=== PATIENT | female | born 1955 | race Caucasian/White ===

== ENCOUNTER 2018-07-15 12:50 | Outpatient (CLI) | payer MEDICARE ==
[2018-07-15 13:58] LABS: Estimated GFR-MDRD - POC Greater than 90
--- NOTE | 2018-07-15 14:14 | CT ---
CT LUMBAR SPINE WITHOUT CONTRAST: HISTORY: Previous fracture to the lumbar spine. Pain radiating down the left leg. Left leg weakness. COMPARISON: None. FINDINGS: There is leftward curvature of the lumbar spine. Unilateral left-sided transpedicular screw at L5 an d S1. No perihardware lucency. There is bone graft material in the posterior elements at L4, L5, an d S1. Laminectomy defect at L5 and to a lesser extent at L4. No retroperitoneal mass, lymphadenopathy, or hematoma. The visualized solid organs and alimentary ca nal are unremarkable. No prevertebral soft tissue swelling. Limited evaluation of the contents of the central spinal canal and neural foramen due to technique. T12-L1: No significant central canal stenosis or significant foraminal narrowing. L1-L2: Severe loss of disk space height. Nevertheless, no high-grade central canal stenosis. Mild bilateral foraminal narrowing. L2-L3: Severe loss of disk space height. No high-grade central canal stenosis. Moderate right and m ild to moderate left foraminal narrowing. L3-L4: Severe loss of disk space height. Generalized disk bulge, ligamentum flavum thickening, and facet hypertrophy result in mild to moderate central canal stenosis. Right neural foramen is moderat kat narrowed. The left foramen is patent. L4-L5: Laminectomy defect. Generalized disk bulge, posterior element hypertrophy result in at least mild central canal stenosis. Mild bilateral neural foraminal narrowing. L5-S1: Laminectomy defect. Limited evaluation of the central spinal canal. No evidence of high-gra de central canal stenosis. Mild right and mild to moderate left foraminal narrowing. The left neura l foramen is slightly narrowed due to osteophyte formation along the inferior end plate of L5. IMPRESSION: 1. Degenerative change of the lumbar spine as described above. 2. Fusion change of the lumbar spine as described above. 3. No evidence of high-grade central spinal canal. Varying degrees of foraminal narrowing as detail ed above. POS: [facility]
--- NOTE | 2018-07-15 15:27 | MRI ---
[facility] brain with and without contrast: 07/15/2018 HISTORY: 63-year-old female with R 41.89 cognitive change. FINDINGS: There is no restricted diffusion. Ventricles are normal in size and configuration. No abnormal intra- axial enhancement, intra-axial mass, mass effect, midline shift, or extra-axial fluid collection. The re are several small patchy focal T2 hyperintense lesions ranging from a few millimeters to slightly greater than 1 cm in size in the bilateral stewart radiata and centrum semiovale. These are nonspecifi c, but are statistically most likely represent chronic ischemic white matter changes due to microvasc ular atherosclerosis. Mild such changes are present in the sanjiv. No evidence of recent or remote intr a-axial hemorrhage. IMPRESSION: 1. Mild chronic ischemic white matter changes. 2. Otherwise negative.
--- NOTE | 2018-07-15 15:49 | MRI ---
[facility] CERVICAL SPINE WITH AND WITHOUT CONTRAST: HISTORY: Cervical myelopathy. The patient has had a previous history of multiple myeloma. TECHNIQUE: Multiplanar, multisequence pre and post contrast enhanced MR images cervical spine obtained. C1-C2: Unremarkable. C2-C3: There is a mild broad-based disc bulge. No significant degree of central or neural foraminal n arrowing seen. C3-C4: There is broad-based disc osteophyte complex centrally, compressing the thecal sac. This resul ts in moderate to severe central and mild cord compression. There is moderate to severe bilateral C3- 4 neural foraminal narrowing due to uncovertebral osteophyte hypertrophy. C4-C5: There is a minimal broad-based central disc bulge. The neural foramen are patent. The C5 vertebral body is atrophied, significantly smaller than adjacent signals. It also has increas ed signal in T1 and T2 weighted sequences, most compatible with extensive fatty changes. C5-C6: Significant disc space height loss is seen. The central canal and neural foramen are patent. C6-C7: There is a broad-based disc osteophyte complex centrally, compressing the thecal sac, resultin g in moderate to severe thecal sac compression. Cord compression is seen. The right neural foramen is patent. Moderate to severe left C6-7 neural foraminal narrowing is seen, due to uncovertebral osteop hyte hypertrophy. C7-T1: Unremarkable. IMPRESSION: 1. C3-C4 and C6-C7 central spinal stenosis. 2. There is some atrophy of the C5 vertebral body, with partial fusion with the upper C6 level. Transcribed Date/Time: 07/15/2018 3:49 PM
== END 2018-07-15 12:51 | disposition home or self-care (01) ==
LOC: BICMRI 12:50
PROVIDERS: ATTEND Neurological Surgery
DX: M47.26 Other spondylosis with radiculopathy, lumbar region (principal); M47.16 Other spondylosis with myelopathy, lumbar region; G95.9 Disease of spinal cord, unspecified; R41.89 Other symptoms and signs involving cognitive functions and awareness; C90.00 Multiple myeloma not having achieved remission; M48.02 Spinal stenosis, cervical region; Z98.890 Other specified postprocedural states
CPT/HCPCS: 70553; 72131; 72156; 82565

== ENCOUNTER 2018-11-14 12:30 | Observation (INO) | payer MEDICARE ==
--- NOTE | 2018-11-14 13:25 | CT ---
CT Brain WO Con: 11/14/2018 1:00 PM CLINICAL HISTORY: Syncopal episode and fall. IMAGING TECHNIQUE: Multiple CT images were obtained of the brain without IV contrast. COMPARISON: MR the brain dated July 15, 2018 FINDINGS: Infarct: No acute infarct is evident. There is stable mild chronic small vessel white matter ischemi c change. Hemorrhage: None.. Hydrocephalus: None.. Basal cisterns: Normal.. Cerebral parenchyma: Normal.. Midline shift: None.. Cerebellum: Normal. Brainstem: Normal. OTHER: Calvarium: Intact.. Visualized Paranasal sinuses: Clear.. Extracranial soft tissues:Normal. IMPRESSION: No acute intracranial abnormality.
--- NOTE | 2018-11-14 13:29 | CT ---
CT Cervical Spine WO Con Indication: Syncopal episode with fall and neck pain COMPARISON: MR the cervical spine dated July 15, 2018 FINDINGS: Acute fracture/subluxation: None. Spinal alignment: There is slight anterior translation of C3 on C4 which is degenerative. Craniocervical junction: Within normal limits. Vertebral body heights: There is ankylosis of C4-C6 including both the intervertebral bodies as well as the facet complexes. There is degenerative subchondral cystlike abnormality is seen within C5, C4 and C6. Cervical spine degenerative change: There is moderate to severe multilevel spondylosis of the cervica l spine. There is prominent disc osteophyte complex at C6-C7 causing some mild osseous central canal narrowing Lung apices: Clear. IMPRESSION: 1. No acute fracture or subluxation demonstrated. 2. Moderate to severe spondylosis of the cervical spine
--- NOTE | 2018-11-14 14:18 | RAD ---
XR Foot Rt 3 View STANDARD INDICATION: Syncopal episode with foot injury COMPARISON: None. FINDINGS: Bones: There is healed fracture deformity of the fifth digit metatarsal. There is a spiral fracture o f the lateral malleolus. Joints: There is moderate metatarsus primus varus and hallux valgus deformity. There is a moderate-si zed bunion overlying the great toe metatarsal head. Small calcification is seen lateral to the great toe proximal phalangeal base. Lisfranc alignment: Lisfranc alignment appears within normal limits. Soft tissues: There is a moderate-sized bunion overlying the great toe metatarsal head. IMPRESSION: No acute fracture or subluxation demonstrated of the right foot. Spiral fracture of the l ateral malleolus.
--- NOTE | 2018-11-14 14:26 | RAD ---
RIGHT ANKLE 3 VIEWS: Date: 11/14/18 HISTORY: Fall, right ankle pain. FINDINGS/IMPRESSION: There is an oblique, minimally displaced fracture involving the distal fibula. Soft tissue swelling i s present. The ankle mortise is maintained. POS: [facility]
--- NOTE | 2018-11-14 14:27 | RAD ---
LEFT ANKLE 3 VIEWS: Date: 11/14/18 HISTORY: Fall. Left ankle pain. FINDINGS/IMPRESSION: The ankle mortise is maintained. No fracture or dislocation is seen. Posterior and plantar calcaneal spurs are present. Soft tissue swelling is present. POS: [facility]
[2018-11-14] MEDS ORDERED: Aspirin 325 MG TAB ONE (14:47)
[2018-11-14] MEDS ORDERED: Nitroglycerin 2% Ointment 1 INCH/1 GM Packet ONE ×2 (14:48→17:38)
[2018-11-14 15:16] LABS: #Basophils 0.1 thou/uL (0.0-0.2); #Eosinphils 0.2 thou/uL (0.0-0.7); #Lymphocytes 1.9 thou/uL (1.20-3.40); #Monocytes 0.5 thou/uL (0.11-0.59); #Neutrophils 3.2 thou/uL (1.40-6.50); %Basophils 1.4 % (0.0-1.0); %Eosinophils 2.9 % (0.0-10.0); %Lymphocytes 32.1 % (21.0-51.0); %Neutrophils 55.5 % (42.0-75.0); Hemoglobin 14.4 g/dL (12.0-16.0); Mean Corpuscular HGB CONC 33.5 g/dL (32.0-36.0); Mean Corpuscular Hemoglobin 30.9 pg (27.0-31.0); Mean Corpuscular Volume 92.4 fL (78.0-98.0); Mean Platelet Volume 7.3 fL (7.4-10.4); Platelet Count 197 thou/uL (130-400); RBC Distribution Width 14.3 % (11.5-14.5); Red Blood Cell (RBC) Count 4.65 mill/uL (4.20-5.40); White Blood Cell (WBC) Count 5.8 thou/uL (4.8-10.8)
--- NOTE | 2018-11-14 15:37 | RAD ---
Chest one view HISTORY: Syncope. Chest pain. COMPARISON: 05/24/2016. FINDINGS: Cardiac silhouette is magnified by projection. Pulmonary vasculature is unremarkable. Media stinum is midline. No lobar consolidation or evidence of pneumothorax. IMPRESSION: No active cardiopulmonary abnormalities are demonstrated.
[2018-11-14 15:38] LABS: ALT (SGPT) 20 U/L (8-55); AST (SGOT) 24 U/L (5-34); Albumin 4.4 g/dL (3.4-4.8); Alkaline Phosphatase 94 U/L (40-150); Anion Gap 14 mmol/L (10-20); BUN (Urea Nitrogen) 17 mg/dL (9.8-20.1); Bilirubin, Total 0.6 mg/dL (0.2-1.2); CK (CPK) 169 U/L (29-168); Calc. Creatinine Clearance 0 mL/min (70-130); Calcium 9.9 mg/dL (7.8-10.44); Carbon Dioxide 28 mmol/L (23-31); Chloride 99 mmol/L (98-107); Estimated GFR-MDRD Greater than 90; Glucose 90 mg/dL (80-115); Lipase 7 U/L (8-78); Protein, Total 7.4 g/dL (6.0-8.3); Sodium 137 mmol/L (136-145)
--- NOTE | 2018-11-14 16:23 | PDOC.FPRHP ---
- History of Present Illness Chief Complaint: Fracture, syncope History of Present Illness: This 63-year-old female w/ significant PMHx including multiple myeloma, gastric bypass, SVT, HLD, and hypothyroidism presented to the ER today after having a fall yesterday. The fall occurred when she fainted near the stairs and sustained a R distal fibula fracture and L ankle sprain. She reports her daughter, who is intellectually disabled, could not wake her up for a couple of minutes. Before the fall, the patient became weak and tried to brace herself. Patient reports she has fallen about twice a month for the past several months and attributes this to dehydration as well as low blood pressure, which is why she stopped taking her bisoprolol for her SVT. She denies any other symptoms associated with her syncopal episodes. When patient arrived to the ED, she began experiencing chest pain she describes as pressure which radiates to her right ribs and upwards to her neck some. She denies nausea, vomiting, or diaphoresis with these episodes. She has had this chest pain previously and notes the onset of chest pain a few months ago. She likes to garden and the pain worsens with exertion. It improves after she takes an aspirin and lays down ~30 min. The chest pain is associated w/ SOB. ED Course: Patient arrived to ED where her R distal fibula fracture was splinted. After onset of chest pain, nitro paste placed on chest. Pain was better. - Allergies/Adverse Reactions Allergies Allergy/AdvReac Type Severity Reaction Status Date / Time tetracycline Allergy Verified 11/15/18 05:54 - Home Medications Medication Instructions Recorded Confirmed Type Albuterol Sulfate [Proair HFA] 8.5 g INH Q6H PRN 05/25/16 11/14/18 History Ipratropium/Albuterol Sulfate 3 ml NEB QID PRN 05/25/16 11/14/18 History [DuoNeb] Levothyroxine Sodium 50 mcg PO DAILY 05/25/16 11/14/18 History fentaNYL 25 mcg TOP Q3DAYS 05/25/16 11/14/18 History valACYclovir HCl [valACYclovir] 500 mg PO DAILY 05/25/16 11/14/18 History Dicyclomine [Bentyl] 20 mg PO QID #120 tab 06/03/16 11/14/18 Rx Ondansetron [Zofran ODT] 4 mg PO Q6H PRN #20 tab 06/03/16 11/14/18 Rx Saccharomyces boulardii [Florastor] 250 mg PO DAILY #30 cap 06/03/16 11/14/18 Rx Thalidomide [Thalomid] 50 mg PO DAILY 11/14/18 11/14/18 History traZODone HCl [Trazodone HCl] 100 mg PO PRN PRN 11/14/18 11/14/18 History - History PMHx: - Multiple myeloma diagnosed in 2010, on maintenance chemo - Stem cell transplant 2013 - Multilevel back fx - Scoliosis - Degenerative disk disease of spine, - 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 - Review of Systems General: denies: fever/chills, weight/appetite/sleep changes Eyes: denies: eye pain, vision changes ENT: denies: nasal congestion, rhinorrhea Respiratory: reports: shortness of breath, exercise intolerance. denies: cough , congestion Cardiovascular: reports: chest pain, edema Gastrointestinal: denies: nausea, diarrhea, constipation Genitourinary: denies: dysuria Skin: reports: rashes. denies: jaundice Musculoskeletal: denies: pain, stiffness Neurological: reports: syncope. denies: numbness, seizure Psychological: reports: anxiety, depression - Vital signs BP: 124/75 HR: 56 RR: 16 98% on RA Wt: 68 kg - Physical Exam Constitutional: NAD, awake, alert and oriented HEENT: PERRLA, EOMI, MMM Neck: supple, no LAD, no JVD, no thyromegaly Chest: no-tender to palpation Heart: RRR (slightly bradycardic), normal S1/S2, no murmurs/rubs/gallops, pulses present Lungs: CTAB, no respiratory distress, good air movement Abdomen: soft, non-tender, bowel sounds present Musculoskeletal: normal structure, normal tone -Musculoskeletal: Patient had right leg splinted. Neurological: no focal deficit, CN II-XII intact Skin: no rash/lesions, good turgor Heme/Lymphatic: no unusual bruising or bleeding, no LAD Psychiatric: normal mood and affect, good judgment and insight FMR H&P: Results - Labs Result Diagrams: 11/15/18 05:52 11/15/18 05:52 Lab results: WBC 5.8 thou/uL (4.8-10.8) 11/14/18 14:53 Hgb 14.4 g/dL (12.0-16.0) 11/14/18 14:53 Hct 43.0 % (36.0-47.0) 11/14/18 14:53 MCV 92.4 fL (78.0-98.0) 11/14/18 14:53 Plt Count 197 thou/uL (130-400) 11/14/18 14:53 Neutrophils % 55.5 % (42.0-75.0) 11/14/18 14:53 Sodium 137 mmol/L (136-145) 11/14/18 14:53 Potassium 4.0 mmol/L (3.5-5.1) 11/14/18 14:53 Chloride 99 mmol/L (98-107) 11/14/18 14:53 Carbon Dioxide 28 mmol/L (23-31) 11/14/18 14:53 BUN 17 mg/dL (9.8-20.1) 11/14/18 14:53 Creatinine 0.65 mg/dL (0.6-1.1) 11/14/18 14:53 Glucose 90 mg/dL (80-115) 11/14/18 14:53 Calcium 9.9 mg/dL (7.8-10.44) 11/14/18 14:53 Total Bilirubin 0.6 mg/dL (0.2-1.2) 11/14/18 14:53 AST 24 U/L (5-34) 11/14/18 14:53 ALT 20 U/L (8-55) 11/14/18 14:53 Alkaline Phosphatase 94 U/L (40-150) 11/14/18 14:53 Creatine Kinase 169 U/L (29-168) H 11/14/18 14:53 Serum Total Protein 7.4 g/dL (6.0-8.3) 11/14/18 14:53 Albumin 4.4 g/dL (3.4-4.8) 11/14/18 14:53 Lipase 7 U/L (8-78) L 11/14/18 14:53 - EKG Interpretation EKG: Sinus bradycardia w/ 1st degree heart block. Possible RBBB. No evidence of ST changes. - Radiology Interpretation Chest x-ray Status: image reviewed by me, report reviewed by me Additional comment: No acute process CT scan - head Status: report reviewed by me Additional comment: No acute process Other Status: report reviewed by me Additional comment: X-ray of R foot: spiral fracture of lateral malleolus, distal oblique, minimally displaced fibular fracture X-ray L: no fracture. FMR H&P: A/P - Problem List (1) Right fibular fracture Current Visit: Yes Status: Acute Code(s): S82.401A - UNSP FRACTURE OF SHAFT OF RIGHT FIBULA, INIT FOR CLOS FX (2) Chest pain Current Visit: Yes Status: Acute Code(s): R07.9 - CHEST PAIN, UNSPECIFIED (3) Left ankle sprain Current Visit: Yes Status: Acute Code(s): S93.402A - SPRAIN OF UNSPECIFIED LIGAMENT OF LEFT ANKLE, INIT ENCNTR (4) Syncope and collapse Current Visit: Yes Status: Acute Code(s): R55 - SYNCOPE AND COLLAPSE (5) Anxiety Current Visit: No Status: Chronic Code(s): F41.9 - ANXIETY DISORDER, UNSPECIFIED (6) Chronic pain Current Visit: No Status: Chronic Code(s): G89.29 - OTHER CHRONIC PAIN (7) Depression Current Visit: No Status: Chronic Code(s): F32.9 - MAJOR DEPRESSIVE DISORDER , SINGLE EPISODE, UNSPECIFIED (8) Hyperlipidemia Current Visit: No Status: Chronic Code(s): E78.5 - HYPERLIPIDEMIA, UNSPECIFIED (9) Hypothyroidism Current Visit: No Status: Chronic Code(s): E03.9 - HYPOTHYROIDISM, UNSPECIFIED Qualifiers: (10) Multiple myeloma Current Visit: No Status: Chronic Code(s): C90.00 - MULTIPLE MYELOMA NOT HAVING ACHIEVED REMISSION Qualifiers: (11) History of supraventricular tachycardia Current Visit: Yes Status: Chronic Code(s): Z86.79 - PERSONAL HISTORY OF OTHER DISEASES OF THE CIRCULATORY SYSTEM - Plan 63-yo female w/ multiple complex medical issues presenting for: 1. Syncope & collapse - Will pursue syncope workup: - Bilateral Carotid U/S pending - ECHO pending - Orthostatic vital signs pending - IV Fluids LR 2. R Fibular fracture - No ambulation - Ortho consult in AM 3. L ankle sprain - Pain management - Continue patient's fentanyl patch 4. Chest pain, r/o ACS - In conjunction w/ syncope workup, we will rule out ACS: - Nuclear stress test in AM, NPO at midnight - Repeat EKG as needed - ECHO as above - Nitro prn - Trend troponins - TSH, Hgb A1C, Magnesium, Phosphorus pending - PPx: LVX. - Telemetry observation - Patient's multiple myeloma not only places her at risk for clotting, but also at risk for cardiomyopathy. Chronic problems: Multiple myeloma: continue thalomid HTN: monitor vitals. Patient seems to run on the more hypotensive side. Hypothyroidism: continue synthroid Anxiety/Depression: continue meds Code status: FULL PPx: LVX Annabelle Salazar MD PGY-1 FMR H&P: Upper Level - Plan Date/Time: 11/14/18 1621 63 yo f presents with syncope and chest pain. She fell upon fainting and hurt her right ankle/leg. Chest pain described as left sided that raps around to her back, pressure-like, no n/v/d, but does endorse shortness of breath, denies diaphoresis, does not radiate, worse with exertion, relieved by rest. Vitals: sinus bradycarida 50-60s, otherwise wnl PE: NAD Sinus bradycardia, possible 1/6 systolic murmur CTAB ankles wrapped b/l, right ankle/robins splinted a&Ox3 Labs: trop <.o1 Sinus bradycardia w/ 1st degree heart block. Possible RBBB. No evidence of ST changes. X-ray of R foot: spiral fracture of lateral malleolus, distal oblique, minimally displaced fibular fracture A/P: Atypical chest pain-troponins negative, no ST changes, although unsureif the 1 degree block and possible RBBB are new. Will trend troponins, and check serial EKG's if chest pain persists. Currently pain resolved in the room. No prior hx of ME. Will admit overnight and get a stress in the am. Pt received 324mg aspirin in the ER and 81mg daily started. Will check mg, phosph, tsh, hba1c as well. Will get an echo for possible murmur. Syncope -cardiogenic vs dehydration; will get orthostatics, echo, serial EKGs, and carotid doppler US b/l to further assess. Pt asymptomatic in the room currently and bp's wnl. Fibular fracture-pt currently splinted; will consult ortho in am. Jesus Burger MD, PGy-3 have evaluated this patient and agree with findings/ plan as outlined by design engineering intern resident. Pertinent changes/additions are listed here. Addendum - Attending - Attending Attestation Date/Time: 11/14/18 [id number] I personally evaluated the patient and discussed the management with Dr. Tran. I agree with the History, Examination, Assessment and Plan documented above with any addition or exceptions noted below. The patient presented following a fall/syncopal spell where she fractured her right fibula. The patient then developed a squeezing chest pain radiating to the left ribs while in the ER. She will get a carotid doppler and echo. The patient will also have enzymes trended, will get chemical stress test tomorrow. Nitro for pain. Pt's leg has been splinted.
[2018-11-14] MEDS ORDERED: Morphine 4 MG/ML VIAL ONE (17:38)
[2018-11-14] MEDS ORDERED: Ondansetron PF 4 MG/2 ML Vial IVP PRN ×2 (18:47→20:11)
[2018-11-14] MEDS ORDERED: Ondansetron ODT 4 MG TAB SL PRN (18:47)
[2018-11-14 19:11] VITALS: BMI 29.4
[2018-11-14 19:12] LABS: Troponin I Less than 0.010 ng/mL (< 0.028)
[2018-11-14] MEDS ORDERED: Guaifenesin DM 100-10/5 ML UDCUP PO PRN (20:11)
[2018-11-14] MEDS ORDERED: Calcium Carbonate 500 MG ChewTAB PO PRN (20:11)
[2018-11-14] MEDS ORDERED: Ondansetron ODT 4 MG TAB PO PRN (20:11)
[2018-11-14] MEDS ORDERED: PROVENTIL INHALER 6.7 G (200 INHALATIONS) INH PRN (20:11)
[2018-11-14] MEDS ORDERED: Senokot S 8.6-50 MG TAB PO PRN (20:11)
[2018-11-14] MEDS ORDERED: Acetaminophen 325 MG TAB PO PRN (20:11)
[2018-11-14] MEDS ORDERED: Dicyclomine 20 MG TAB PO PRN (20:11)
[2018-11-14 21:57] LABS: Hemoglobin A1c 5.4 % (4.0-6.0)
[2018-11-14] MEDS: traZODone HCl 50 MG TAB PO PRN (22:06)
[2018-11-14] MEDS: Nitroglycerin 2% Ointment 1 INCH/1 GM Packet TOP SCH (22:06)
[2018-11-14 22:11] LABS: Phosphorus 3.7 mg/dL (2.3-4.7)
[2018-11-14 22:19] LABS: Troponin I Less than 0.010 ng/mL (< 0.028)
--- NOTE | 2018-11-15 02:35 | PDOC.EVN ---
Event Note - Event Note Event Note: At approximately 2130, hospital staff were notified that Mrs. Bettencourt was experiencing left-sided chest pain. The patient stated that the pain began around 1999 and felt similar to other anginal episodes that she has had in the past, occurred at rest, was sharp in nature and a 5/10 in severity without radiation. Mrs. Bettencourt's vital signs were within normal limits and she did not appear in any acute distress, without evidence of JVD or new-onset murmurs, clicks, gallops, or rubs. She admitted to [facility] during her physical exam, but denies shortness of breath, diaphoresis, nausea, vomiting, jaw pain, or shoulder pain. Review of her telemetry reading showed no acute abnormalities, and a repeat EKG was performed that was similar to the EKG performed on admission. Additional Troponin and CK-MB values were shown to be within normal limits. Mrs. Bettencourt was administered a nitro patch by nursing staff, and claimed that her symptoms resolved.
[2018-11-15] MEDS: Nitroglycerin 2% Ointment 1 INCH/1 GM Packet TOP SCH ×3 (05:46→19:53)
--- NOTE | 2018-11-15 06:08 | PDOC.FM ---
- Subjective Subjective: Brief interaction w/ patient this morning as she was about to go to stress test. Denies chest pain, SOB. Her leg hurts. She feels sleepy. No questions or other complaints. - Objective MAR Reviewed: Yes Vital Signs & Weight: Vital Signs (12 hours) Temp Pulse Resp BP Pulse Ox 11/15/18 04:00 97.7 F 56 L 14 90/54 L 94 L 11/14/18 18:45 99.1 F 56 L 16 124/75 98 Weight Weight 68.356 kg I&O: 11/13/18 11/14/18 11/15/18 06:59 06:59 06:59 Intake Total 500 Output Total 1650 Balance -1150 Result Diagrams: 11/15/18 05:52 11/15/18 05:52 Phys Exam - Physical Examination Constitutional: NAD Respiratory: no wheezing, clear to auscultation bilateral Cardiovascular: no significant murmur (bradycardic rate, regular rhythm) Gastrointestinal: soft, positive bowel sounds Dx/Plan (1) Right fibular fracture Code(s): S82.401A - UNSP FRACTURE OF SHAFT OF RIGHT FIBULA, INIT FOR CLOS FX Status: Acute (2) Chest pain Code(s): R07.9 - CHEST PAIN, UNSPECIFIED Status: Acute (3) Left ankle sprain Code(s): S93.402A - SPRAIN OF UNSPECIFIED LIGAMENT OF LEFT ANKLE, INIT ENCNTR Status: Acute (4) Syncope and collapse Code(s): R55 - SYNCOPE AND COLLAPSE Status: Acute (5) Anxiety Code(s): F41.9 - ANXIETY DISORDER, UNSPECIFIED Status: Chronic (6) Chronic pain Code(s): G89.29 - OTHER CHRONIC PAIN Status: Chronic (7) Depression Code(s): F32.9 - MAJOR DEPRESSIVE DISORDER, SINGLE EPISODE, UNSPECIFIED Status : Chronic (8) Hyperlipidemia Code(s): E78.5 - HYPERLIPIDEMIA, UNSPECIFIED Status: Chronic (9) Hypothyroidism Code(s): E03.9 - HYPOTHYROIDISM, UNSPECIFIED Status: Chronic Qualifiers: (10) Multiple myeloma Code(s): C90.00 - MULTIPLE MYELOMA NOT HAVING ACHIEVED REMISSION Status: Chronic Qualifiers: (11) History of supraventricular tachycardia Code(s): Z86.79 - PERSONAL HISTORY OF OTHER DISEASES OF THE CIRCULATORY SYSTEM Status: Chronic - Plan Plan: 63-yo female w/ multiple complex medical issues presenting for: 1. Syncope & collapse - Will pursue syncope workup: - Bilateral Carotid U/S pending - ECHO pending - Orthostatic vital signs pending - IV Fluids LR 2. R Fibular fracture - No ambulation - Ortho consult this AM 3. L ankle sprain - Pain management - Continue patient's fentanyl patch 4. Chest pain, r/o ACS - In conjunction w/ syncope workup, we will rule out ACS: - Nuclear stress test this AM - Repeat EKG as needed - ECHO as above - Nitro prn - Troponins negative x3 - TSH WNL - Hgb A1C, Magnesium, Phosphorus WNL - PPx: LVX. - Telemetry observation - Patient's multiple myeloma not only places her at risk for clotting, but also at risk for cardiomyopathy. Chronic problems: Multiple myeloma: continue thalomid HTN: monitor vitals. Patient seems to run on the more hypotensive side. Hypothyroidism: continue synthroid Anxiety/Depression: continue meds Code status: FULL PPx: LVX Annabelle Salazar MD PGY-1 Addendum - Attending - Attending Attestation Date/Time: 11/15/18 2887 I personally evaluated the patient and discussed the management with Dr. Salazar. I agree with the History, Examination, Assessment and Plan documented above with any addition or exceptions noted below. Pt will be having a 2-part stress per report. She is free of chest pain at this time. Ortho will be consulted for the fracture. Moderate stenosis noted carotid doppler.
[2018-11-15 06:14] LABS: #Eosinphils 0.2 thou/uL (0.0-0.7); #Lymphocytes 1.4 thou/uL (1.20-3.40); #Monocytes 0.4 thou/uL (0.11-0.59); #Neutrophils 1.3 thou/uL (1.40-6.50); %Basophils 1.4 % (0.0-1.0); %Eosinophils 5.8 % (0.0-10.0); %Lymphocytes 42.7 % (21.0-51.0); %Monocytes 11.4 % (0.0-10.0); %Neutrophils 38.7 % (42.0-75.0); Hemoglobin 11.7 g/dL (12.0-16.0); Mean Corpuscular HGB CONC 33.7 g/dL (32.0-36.0); Mean Corpuscular Hemoglobin 31.3 pg (27.0-31.0); Mean Corpuscular Volume 92.7 fL (78.0-98.0); Platelet Count 149 thou/uL (130-400); RBC Distribution Width 14.3 % (11.5-14.5); Red Blood Cell (RBC) Count 3.75 mill/uL (4.20-5.40); White Blood Cell (WBC) Count 3.4 thou/uL (4.8-10.8)
[2018-11-15] MEDS: Levothyroxine Sodium 50 MCG TAB PO SCH (06:18)
[2018-11-15 06:40] LABS: ALT (SGPT) 15 U/L (8-55); AST (SGOT) 15 U/L (5-34); Albumin 3.2 g/dL (3.4-4.8); Alkaline Phosphatase 62 U/L (40-150); Anion Gap 8 mmol/L (10-20); BUN (Urea Nitrogen) 15 mg/dL (9.8-20.1); Bilirubin, Total 0.3 mg/dL (0.2-1.2); Calc. Creatinine Clearance 106 mL/min (70-130); Carbon Dioxide 30 mmol/L (23-31); Cardiac Risk 2.6 (Less than 4.5); Chloride 105 mmol/L (98-107); Cholesterol 126 mg/dl (< 200 Desired); Estimated GFR-MDRD Greater than 90; Globulin 2.2 g/dL (2.4-3.5); Glucose 91 mg/dL (80-115); HDL Cholesterol 49 mg/dL (>60 Neg Risk); LDL Cholesterol, Calculated 65 mg/dL; Potassium 3.8 mmol/L (3.5-5.1); Protein, Total 5.4 g/dL (6.0-8.3); Sodium 139 mmol/L (136-145); Triglycerides 61 mg/dL (Less than 150)
[2018-11-15] MEDS: valACYclovir 500 MG TAB PO SCH (08:14)
[2018-11-15] MEDS: Saccharomyces boulardii 250 MG CAP PO SCH (08:14)
[2018-11-15] MEDS: Enoxaparin Sodium 40 MG/0.4 ML SYRINGE SC SCH (08:16)
[2018-11-15] MEDS ORDERED: Morphine 2 MG/ML SYRINGE SLOW IVP SCH (09:34)
[2018-11-15] MEDS: FLUoxetine HCl 10 MG CAP PO SCH (10:00)
[2018-11-15] MEDS ORDERED: ADENOSINE 60 MG/20 ML VIAL ONE (10:19)
--- NOTE | 2018-11-15 11:10 | ULT ---
BILATERAL CAROTID DUPLEX ULTRASOUND: DATE: 11/15/18 HISTORY: Syncope. TECHNIQUE: Singleton scale ultrasound with color flow and spectral Doppler imaging of the extracranial carotid artery systems performed bilaterally. FINDINGS: There is tortuosity of the left internal carotid artery and both vertebral arteries. There is a small amount of plaque formation noted on either side. The peak systolic velocity in the right ICA measures 103 cm/second with an end-diastolic velocity of 32 cm/second and a systolic ratio of 1.25. The peak systolic velocity in the left ICA measures 201 cm/second with an end-diastolic velocity of 5 5 cm/second and a systolic ratio of 2.46. IMPRESSION: Moderate (50-69%) stenosis involving the left ICA. POS: [facility]
--- NOTE | 2018-11-15 11:49 | CON ---
DATE OF CONSULTATION: This is Eulalio Bolton PA-C dictating a report for Aniceto Powers MD. HISTORY OF PRESENT ILLNESS: We were asked by Family Practice Service to see the patient. The patient came in on the . Apparently, she had passed out. When she woke up, her ankles were behind her and she had significant right lower extremity greater than left lower extremity in the ankle, lower leg pain. She was unable to walk very well due to pain. She is able to move both legs well and sensations are intact. She does live at home with her disabled daughter. Other than the brief loss of consciousness, she awoke, knew what was going on, did not recall hitting her head whatsoever and that she has been here, felt around her head, has no lumps or bumps. Today speaking with her, she is in a sugar-tong splint on the right and an Shan wrap on the left ankle. She is able to move her toes well. No numbness or tingling, but she is quite sore. She is going for a stress test today. PAST MEDICAL HISTORY: Positive for multiple myeloma, currently in remission. She has had some back fractures, scoliosis, degenerative disks, some neuropathy, anxiety, depression, PTSD, cardiac issues. PAST SURGICAL HISTORY: Gastric bypass, hysterectomy, tonsils, knee arthroscopy, cholecystectomy, and spinal surgery. FAMILY HISTORY: For this current visit is noncontributory. SOCIAL HISTORY: Resides with daughter. No alcohol, nicotine, or drug use. ALLERGIES: TETRACYCLINE. CURRENT MEDICATIONS: 1. Albuterol. 2. DuoNeb. 3. Levothyroxine. 4. Fentanyl patch. 5. Valacyclovir. 6. Bentyl. 7. Zofran. 8. Florastor. 9. Thalomid. 10. Trazodone. REVIEW OF SYSTEMS: Currently, bilateral ankle pain, but no shortness of breath or current chest pain. Bowel and bladder function per the patient are good and other than pain, rest of review of systems is negative. PHYSICAL EXAMINATION: GENERAL: Well-nourished, well-developed female, resting in bed, no acute distress. Speech clear. Affect pleasant. Answers questions appropriately. She is alert and oriented x3. HEENT: Normal exam. Face symmetric. Tongue midline. No signs of injury to the scalp or face. NECK: Supple. Trachea midline. RESPIRATORY: Respiratory rate is 16, and in no distress. EXTREMITIES: Upper extremities, equal size, shape, and symmetry. Normal bulk and tone. Lower extremities; right lower extremity is in a sugar-tong splint. Left lower extremity is in an Shan wrap. Bilateral DP pulses are equal. She is able to wiggle her toes and has good sensation. Otherwise, the legs are equal size, shape, and symmetry other than stated above. ASSESSMENT: 1. Fainted versus syncopal episode, currently being worked up. 2. Right fibular fracture with Left ankle sprain/strain. PLAN: We will get her in a boot on the right, see what therapy can do with her. If she does have some weakness on the left as she is walking, maybe needs an ankle brace. Also instructed the patient maybe when she sees her primary doctor, to get a DEXA scan. Since she has had a gastric bypass and now has a standing fall fracture, she may need to have her bones evaluated, which she understands. Currently, there is no surgical intervention. I discussed the case with Dr. Powers. We reviewed x- rays together. I think this is a good plan for the patient as does she currently. We will follow her up while she is in the hospital. Hopefully, therapy can get her moving back home with her daughter since she is medically stable and physically stable. Job ID: [id number] MTDD
[2018-11-15 11:56] LABS: CKMB 0.7 ng/mL (0-6.6); Troponin I Less than 0.010 ng/mL (< 0.028)
--- NOTE | 2018-11-15 17:46 | NM ---
NUCLEAR MEDICINE MYOCARDIAL PERFUSION EVALUATION: INDICATIONS: Chest pain. RADIOPHARMACEUTICAL: Technetium 99m sestamibi 30.5 millicuries IV with stress. Technetium 99m sestamibi 10.5 millicuries IV with rest. FINDINGS: When comparing the rest/stress images, no reversible myocardial perfusion defect is evident. There i s normal wall motion and thickening. Estimated LVEF is 62%. IMPRESSION: 1. Normal myocardial perfusion evaluation. 2. No scintigraphic evidence to suggest reversible myocardial ischemia. POS: BH
[2018-11-15] MEDS: traMADol HCl 50 MG TAB PO PRN (19:51)
[2018-11-15] MEDS ORDERED: Atorvastatin Calcium 40 MG TAB PO SCH (21:00)
[2018-11-15] MEDS ORDERED: Prevnar 13-Val Conj/PF 0.5 ML SYRINGE IM ONE (21:00)
[2018-11-15] MEDS: Morphine 2 MG/ML SYRINGE SLOW IVP PRN (21:01)
[2018-11-15] MEDS: traZODone HCl 50 MG TAB PO PRN (21:10)
[2018-11-16] MEDS: THALIDOMIDE 50 MG PO SCH ×3 (01:35→08:27)
[2018-11-16] MEDS: traMADol HCl 50 MG TAB PO PRN ×2 (05:23→15:28)
[2018-11-16] MEDS: Levothyroxine Sodium 50 MCG TAB PO SCH (05:24)
[2018-11-16] MEDS: Nitroglycerin 2% Ointment 1 INCH/1 GM Packet TOP SCH ×3 (05:24→15:16)
--- NOTE | 2018-11-16 06:37 | PDOC.FM ---
- Subjective Subjective: Pt had episode of chest pain this morning lasting about 20 minutes and described as a squeezing, dull left-sided pain similar to prior episodes. No associated SOB, n/v, or diaphoresis or radiation of pain. Pt was given nitro and morphine with resolution of sxs. Tele did not show any acute changes during , before, or after episode. Otherwise patient is doing well this morning and eager for PT to attempt ambulation. She states she has multiple falls a week described as "vision closing in" and fainting. She states these occur most when she is going from sitting to standing. No fevers/chills. Pt lives with her adult, mentally handicapped daughter and is primary caregiver. She states she has another daughter who is coming in town to help out for the next few weeks but states she would like to see if home health could be arranged for at home PT. - Objective MAR Reviewed: Yes Vital Signs & Weight: Vital Signs (12 hours) Temp Pulse Resp BP Pulse Ox 11/16/18 03:32 97.3 F L 53 L 16 98/54 L 93 L 11/15/18 19:50 97.5 F L 60 18 113/59 L 97 Weight Weight 68.356 kg I&O: 11/14/18 11/15/18 11/16/18 06:59 06:59 06:59 Intake Total 500 840 Output Total 1650 1500 Balance -1150 -660 Result Diagrams: 11/15/18 05:52 11/15/18 05:52 EKG Reviewed by me: Yes (Tele: first degree AV block with BBB, unchanged from admit.) Radiology Reviewed by me: Yes Phys Exam - Physical Examination Constitutional: NAD HEENT: moist MMs Respiratory: no wheezing, no rales, no rhonchi, clear to auscultation bilateral Cardiovascular: no significant murmur, no rub Bradycardia, regular rhythm Gastrointestinal: soft, non-tender, no distention, positive bowel sounds Musculoskeletal: no edema, pulses present Boot on right leg, left ankle wrapped with mild edema and TTP. Neurological: normal sensation, moves all 4 limbs Psychiatric: normal affect, A&O x 3 Dx/Plan (1) Syncope and collapse Code(s): R55 - SYNCOPE AND COLLAPSE Status: Acute (2) Right fibular fracture Code(s): S82.401A - UNSP FRACTURE OF SHAFT OF RIGHT FIBULA, INIT FOR CLOS FX Status: Acute Qualifiers: Fracture morphology: spiral (3) Chest pain Code(s): R07.9 - CHEST PAIN, UNSPECIFIED Status: Acute (4) Left ankle sprain Code(s): S93.402A - SPRAIN OF UNSPECIFIED LIGAMENT OF LEFT ANKLE, INIT ENCNTR Status: Acute (5) History of supraventricular tachycardia Code(s): Z86.79 - PERSONAL HISTORY OF OTHER DISEASES OF THE CIRCULATORY SYSTEM Status: Chronic (6) Chronic pain Code(s): G89.29 - OTHER CHRONIC PAIN Status: Chronic (7) Multiple myeloma Code(s): C90.00 - MULTIPLE MYELOMA NOT HAVING ACHIEVED REMISSION Status: Chronic Qualifiers: - Plan Plan: 63-year-old female w/ significant PMHx including multiple myeloma, gastric bypass, SVT, HLD, and hypothyroidism presented w/ syncope and found to have right fibular fracture 1. Syncope & collapse - CT head WNL, Echo WNL, Carotid Doppler demonstrated moderate stenosis of L ICA - Orthostatic vital signs negative, however hypotensive and bradycardic at baseline. Possible thalmoid SE. Counseled on fall precautions and slow to rise. - IV Fluids LR @ 125 2. R Fibular fracture - Spiral fracture - Will check Vit D - Ortho consulted, appreciate recs, placed in boot and PT eval and stated able to ambulate at home, rec DEXA as OP with PCP 3. L ankle sprain - Pain management - Continue patient's home fentanyl patch - PT to eval and tx, apprec recs 4. Chest pain, r/o ACS - In conjunction w/ syncope workup - Echo WNL, Stress with no significant stenosis, trops negative x4, TSH WNL. - Hgb A1C, Magnesium, Phosphorus WNL - Telemetry observation - Patient's multiple myeloma not only places her at risk for clotting, but also at risk for cardiomyopathy. 5. Multiple myeloma - continue home thalomid 6. HTN - monitor vitals. Patient seems to run on the more hypotensive side. Orthostatics negative. Given fall precautions for discharge. 7. Hypothyroidism - TSH WNL, continue home synthroid 8. Anxiety/Depression - continue home meds PPx: LVX Diet: Heart Healthy Code status: FULL Dispo: Passed PT eval this AM. CM to state home health discussion with discharge this PM.
[2018-11-16] MEDS: Morphine 2 MG/ML SYRINGE SLOW IVP PRN (08:12)
[2018-11-16] MEDS: Saccharomyces boulardii 250 MG CAP PO SCH (08:15)
[2018-11-16] MEDS: Enoxaparin Sodium 40 MG/0.4 ML SYRINGE SC SCH (08:15)
[2018-11-16] MEDS: valACYclovir 500 MG TAB PO SCH (08:15)
[2018-11-16] MEDS: FLUoxetine HCl 10 MG CAP PO SCH (08:15)
--- NOTE | 2018-11-16 12:46 | PRG ---
DATE OF SERVICE: 11/16/2018 Ms. Bettencourt looks and feels fine this morning. Her stress Myoview was negative for reversible ischemia. Her echocardiogram was normal. She is on normal sinus rhythm during her stay. Interestingly, she has recently lost 125 pounds after gastric bypass surgery and I wonder she is assuming a new norm for her blood pressure. In the event, she is tending to run a lower blood pressure and may take her a while to acclimate to this. We have ruled out any serious cause of syncope as it does seem to be related more to her low blood pressure. She had already stopped her bisoprolol that she was taking for SVT because of this. Job ID: [id number]
[2018-11-16] MEDS ORDERED: Bupivacaine/Epinephrine 0.25% 30 ML VIAL IJ SCH (13:00)
[2018-11-16] MEDS ORDERED: Triamcinolone 40 MG/ML VIAL IM SCH (13:00)
[2018-11-16] MEDS ORDERED: Bupivacaine HCl 0.25%/Epi 0.0005/PF 10 ML VIAL FS SCH (13:00)
[2018-11-16] MEDS ORDERED: Lidocaine 1% w/Epinephrine 1:100K 20 ML VIAL IJ SCH (13:00)
[2018-11-16 17:08] VITALS: BP 111/61; TEMP 97.1
--- NOTE | 2018-11-16 22:16 | DIS ---
DATE OF ADMISSION: 11/14/2018 DATE OF DISCHARGE: 11/16/2018 RESIDENT: Damien Radford MD. ADMITTING ATTENDING: Jazz Mcdonough MD. DISCHARGE ATTENDING: Cesar Blanc MD. CONSULTS: Orthopedic, Dr. Aniceto Powers. PROCEDURES: 1. Cervical spine CT-no acute fracture or subluxation demonstrated. Moderate to severe spondylosis of cervical spine. 2. Right ankle t-fnh-pyeyspt minimally displaced fracture involving the distal fibula with associated soft tissue swelling. 3. Left ankle x-ray-no fracture or dislocation seen. Soft tissue swelling present. 4. Brain CT without contrast-no acute intracranial abnormality. 5. Right foot x-ray-no acute fracture or subluxation demonstrated. Spiral fracture of the lateral malleolus. 6. Chest x-ray-no acute cardiopulmonary process. 7. Carotid Doppler study-moderate 50% to 69% stenosis involving the left ICA. 8. Stress test nuclear medicine-normal cardiac myocardial perfusion. No evidence to suggest reversible myocardial ischemia. 9. Echocardiogram-ejection fraction 55% to 60%. No cardiomegaly noted. 10. Steroid joint injection of left knee. PRIMARY DIAGNOSES: 1. Right spiral fibular fracture. 2. Syncope. 3. Left ankle sprain. 4. Noncardiac chest pain, likely musculoskeletal in nature. SECONDARY DIAGNOSES: 1. Multiple myeloma. 2. Hypertension. 3. Hypothyroidism. 4. Anxiety and depression. DISCHARGE MEDICATIONS: 1. Atorvastatin 40 mg p.o. at bedtime. 2. Fluoxetine 10 mg p.o. daily. 3. Tramadol 50 mg p.o. q.4 hours p.r.n. 4. Valacyclovir 500 mg p.o. daily. 5. Levothyroxine 50 mcg p.o. daily. 6. DuoNeb 3 mL nebulizer q.i.d. p.r.n. 7. Albuterol sulfate inhaler 1 to 2 puffs q.6 hours p.r.n. 8. Fentanyl 25 mcg patch, apply one patch q.3 days. 9. Bentyl 20 mg p.o. q.i.d. 10. Zofran 4 mg p.o. q.6 hours p.r.n. 11. Florastor 250 mg p.o. daily. 12. Trazodone 100 mg p.o. p.r.n. 13. Thalomid 50 mg p.o. daily. DISCONTINUED MEDICATIONS: None. HISTORY OF PRESENT ILLNESS AND HOSPITAL COURSE: Ms. Romo is a 63-year-old female with significant past medical history including multiple myeloma, gastric bypass, SVT, hyperlipidemia, hypothyroidism, who presented to the ER after having a fall. She stated the fall occurred when she fainted near the stairs and she sustained a right distal fibular fracture and a left ankle sprain. She reports that her daughter, who is intellectually disabled, could not wake her up for a couple of minutes. Prior to the fall, the patient states she became weak and tried to brace herself. She had tunnel vision and felt very faint prior to passing out. The patient reports that she has multiple falls per week over the past several months, has attributed this to her dehydration and low blood pressure and stopped taking her bisoprolol for SVT. She denies any other symptoms associated with her syncopal episodes such as focal neural deficits or seizure-like activity. In the ED, the patient began to experience chest pain. She described as a pressure which radiates to her right ribs and into her neck. She denies any nausea, vomiting, or diaphoresis with these episodes. She states she has had this pain previously and noted this has been off and on for past few months and is associated with exertion. She says that she takes an aspirin and lays down for about 30 minutes and the pain resolves. The pain is associated with mild shortness of breath. In the ED, the right distal fibular fracture was splinted. She was given nitroglycerin paste for her chest pain with improvement of pain. She was admitted for further evaluation and management. Once on the floor for her syncope and collapse, bilateral carotid ultrasound was ordered with results as above. An echocardiogram was ordered with results as above. Orthostatic vital signs were ordered which were negative. She was started on maintenance IV fluids. Her blood pressure remained in the 90s and orthostatic and hypotensive Fall precautions were discussed with the patient. In conjunction with her chest pain, a nuclear stress test was ordered that did not show any acute blockages or perfusion deficits. Troponins were trended x4, which were all negative. Electrolytes including magnesium, phosphorus, as well as TSH were all within normal limits. The patient was placed on telemetry overnight and did not have any acute event. She did have return of chest pain a few times while in inpatient. The pain resolved with morphine and nitroglycerin paste. During these episodes, she did not have any EKG changes or arrhythmias, and troponins were trended which continued to be negative. Her chronic medical problems including multiple myeloma, hypertension, hypothyroidism, anxiety, depression were all continued with her home medications. On the morning of discharge, the patient again had one of these chest pain episodes lasting approximately 20 minutes and describes a squeezing tightness in her chest that was resolved with morphine. Again, no telemetry or EKG changes were noted. Determined that her pain was likely musculoskeletal in nature. Orthopedics was consulted, who evaluated her fibular fracture and determined that a boot would be sufficient treatment. Physical therapy was consulted who came by and evaluated her and she was able to ambulate around the room with minimal assistance and they recommended home health and home physical therapy for further management. The patient did not have any further syncope events. It was stated that her syncope could be due to her multiple myeloma medications as well as hypotension. Thus, recommendations to stay hydrated as well as fall precautions, orthostatic prevention such as rising slowly from rest were discussed with the patient and the patient was in agreement with the plan. It was decided the patient to be discharged home with home health, to follow up with her primary care physician and Orthopedics as an outpatient. The patient voiced agreement, understanding of the discharge plan and was eager to go home. Orthopedics did recommend the patient would benefit from a DEXA scan due to her ease of fracture with minimal trauma. The patient also voiced that she would have a daughter coming in from out of town to help her around the home over the next few weeks. DISPOSITION: Stable. DISCHARGE INSTRUCTIONS: 1. Location: Home with home health. 2. Diet: Regular as tolerated. 3. Activity: Limited due to right ankle fibula fracture as well as orthostatic precautions. The patient should follow with Physical Therapy recommendations regarding activity and exercises. 4. Followup: The patient should follow up with primary care physician within one week, it was recommended by Orthopedics that she could benefit from an outpatient DEXA scan. The patient should also follow up with Orthopedics within 10 days. Job ID: [id number] MTDD
--- NOTE | 2018-11-17 09:46 | CON ---
DATE OF CONSULTATION: 11/16/2018 CHIEF COMPLAINT: Right ankle pain, left knee pain, left ankle pain. HISTORY OF PRESENT ILLNESS: Ms. Bettencourt is a 63-year-old female, status post injury to her right ankle sustaining a distal fibula fracture. She was admitted by the Medicine Service for syncopal episode and further evaluation. The patient is resting comfortably in bed. I saw her this morning for evaluation. I discussed with her the knee pain as well as her splint. I removed the hard splint and placed the boot back on the patient's foot, which improved her pain. The patient is currently resting comfortably in bed. She received an injection from floyd Harvey PA. She will be discharged and followed up in 2 to 3 weeks. The patient will remain in the boot for 6 weeks, weightbearing as tolerated. Follow up in 2 weeks, we will have her follow up with pre clinic x-rays. The patient's outlook is guarded. Job ID: [id number] MTDD
--- NOTE | 2018-11-17 12:22 | OP ---
DATE OF PROCEDURE: 11/16/2018 This is Eulalio Bolton PA-C dictating a report for Aniceto Powers MD. The patient is asking for a steroid injection into her left knee. She has had one in the past, but has not established care with any of our doctor. She did have a fibula fracture on the right. She has been in a boot, but she is worried about increasing the activity on that left lower extremity and causing some knee pain. Evaluation of the knee, little bit swollen, but no dramatic amount of fluid, a little bit tender to palpation, but she is able to straight leg raise and sensations that lower extremity are intact. ASSESSMENT: Left knee osteoarthritis. PLAN: Steroid injection. PROCEDURE: Poli up 40 mg of 1 mL of triamcinolone, 3 mL of 0.25% Marcaine and 1% of 3 mL of epinephrine. Prepped the area with povidone-iodine Swabsticks x2, injected knee, poli back no blood in syringe, injected 7 mL total. She tolerated this well. Band-aid applied. No problems with injection. We had already discussed previously risks and benefits of the injection. She is well-versed in having knee injections and had no questions or concerns and was amenable to go forth with procedure. Job ID: [id number]
== END 2018-11-16 17:25 | disposition home health service (06) ==
LOC: ERS 12:30 → INTOOBSV 18:50 → 2NO 18:50
PROVIDERS: ADMIT Family Medicine; ATTEND Family Medicine
DX: R55 Syncope and collapse (principal); S82.401A Unspecified fracture of shaft of right fibula, initial encounter for closed fracture; S93.402A Sprain of unspecified ligament of left ankle, initial encounter; M47.812 Spondylosis without myelopathy or radiculopathy, cervical region; R07.89 Other chest pain; C90.00 Multiple myeloma not having achieved remission; I10 Essential (primary) hypertension; E03.9 Hypothyroidism, unspecified; F41.8 Other specified anxiety disorders; F32.9 Major depressive disorder, single episode, unspecified; W18.30XA Fall on same level, unspecified, initial encounter; Y92.000 Kitchen of unspecified non-institutional (private) residence as the place of occurrence of the external cause; Z79.899 Other long term (current) drug therapy
CPT/HCPCS: 29515; 70450; 71045; 72125; 73610 ×2; 73630; 78452; 80053; 80061; 82306; 82550; 82553 ×2; 83036; 83690; 83735; 84100; 84484 ×3; 85025; 93005 ×2; 93017; 93306; 93880; 96372 ×2; 96374; 96376 ×2; 97116; 97139 ×2; 99285; A9500; G0378 ×4; 20610; 36415; 84443; 93010; J0153; J1650; J2001; J2270; J3301

== ENCOUNTER 2020-12-15 09:40 | Outpatient (CLI) | payer MEDICARE | END 2020-12-15 09:41 | disposition home or self-care (01) | LOC: PET 09:40 | PROVIDERS: ATTEND Internal Medicine Hematology & Oncology | DX: C90.00 Multiple myeloma not having achieved remission (principal) | CPT/HCPCS: 78815; A9552 ==

== ENCOUNTER 2021-06-22 09:07 | Outpatient (CLI) | payer MEDICARE | END 2021-06-22 09:08 | disposition home or self-care (01) | LOC: PET 09:07 | PROVIDERS: ATTEND Internal Medicine Hematology & Oncology | DX: C90.00 Multiple myeloma not having achieved remission (principal) | CPT/HCPCS: 78815; A9552 ==

== ENCOUNTER 2022-10-09 13:41 | Emergency (ER) | payer OTHER ==
[2022-10-09] MEDS ORDERED: HYDROcodone/Acetaminophen 10/325 mg Tablet ONE (15:21)
[2022-10-09] MEDS ORDERED: Boostrix 0.5 ML (Tdap) VIAL (>/=7 yrs of age) ONE (15:21)
== END 2022-10-09 18:29 | disposition home or self-care (01) ==
LOC: ERS 13:41
DX: S92.001A Unspecified fracture of right calcaneus, initial encounter for closed fracture (principal); E03.9 Hypothyroidism, unspecified; K21.9 Gastro-esophageal reflux disease without esophagitis; E66.9 Obesity, unspecified; W18.30XA Fall on same level, unspecified, initial encounter; Z79.01 Long term (current) use of anticoagulants
CPT/HCPCS: 90471; 90715